=== PATIENT | female | born 1975 | race Caucasian/White ===

== ENCOUNTER 2018-09-30 09:38 | Emergency (ER) | payer BC ==
[2018-09-30 09:49] VITALS: BP 122/69
--- NOTE | 2018-09-30 11:15 | UC ---
Complaint Female HPI - HPI Summary HPI Summary: hematuria x 12 hours, 2 episodes with mild lower back pain, suprapubic pain, more right sided. no fever, chills. Pain worse after urination, better at rest. H/O back pain, b/l leg pain undergoing work up for swelling, chronic pain. - History Of Current Complaint Chief Complaint: UCGU Stated Complaint: URINE COLLECTION Time Seen by Provider: 09/30/18 10:41 Hx Obtained From: Patient Hx Last Menstrual Period: hyster ?: No - hysterectmy Onset/Duration: Sudden Onset, Lasting Days Timing: Constant Severity Initially: Moderate Severity Currently: Severe Pain Intensity: 7 - Allergies/Home Medications Allergies/Adverse Reactions: Allergies Allergy/AdvReac Type Severity Reaction Status Date / Time aspirin Allergy Nausea And Verified 09/30/18 09:55 Vomiting citalopram [From Celexa] Allergy Fatigue Verified 09/30/18 09:55 duloxetine [From Cymbalta] Allergy See Comment Verified 09/30/18 09:55 eszopiclone [From Lunesta] Allergy Dizziness Verified 09/30/18 09:55 meloxicam [From Mobic] Allergy Nausea Verified 09/30/18 09:55 meperidine [From Demerol] Allergy Rash Verified 09/30/18 09:55 prochlorperazine Allergy See Comment Verified 09/30/18 09:55 [From Compazine] Sulfa (Sulfonamide Allergy Rash Verified 09/30/18 09:55 Antibiotics) PMH/Surg Hx/FS Hx/Imm Hx Previously Healthy: Yes - h/o UTI > 7 months ago h/o Kidney stones - Surgical History Surgical History: Yes Surgery Procedure, Year, and Place: hysterectomy-per pt she has right ovary, right shoulder,kidney stone, abdominal explority, REMOVED DISC FROM RIGHT SIDE JAW, JAW SURGERY X3 - Social History Alcohol Use: None Substance Use Type: None Smoking Status (MU): Never Smoked Tobacco Review of Systems All Other Systems Reviewed And Are Negative: Yes Constitutional: Positive: Chills, Fatigue Genitourinary: Positive: Dysuria, Hematuria Is Patient Immunocompromised?: No Physical Exam Triage Information Reviewed: Yes Appearance: Well-Appearing, No Pain Distress, Well-Nourished Vital Signs: Initial Vital Signs Temp 98.1 F 09/30/18 09:43 Pulse 90 09/30/18 09:43 Resp 16 09/30/18 09:43 BP 122/69 09/30/18 09:43 Pulse Ox 100 09/30/18 09:43 Abdomen Description: Positive: No Organomegaly, Soft, Bruit, CVA Tenderness (R) , Other: - mild suprapubic tenderness. Negative: CVA Tenderness (L) Psychological Exam: Normal Complaint Female Dx - Course Course Of Treatment: UA + protein, blood. Treat for UTI, continue to follow up symptoms referral for urology given due to hematuria, D/C NSAIDs - Differential Dx/Diagnosis Differential Diagnosis/HQI/PQRI: Cervicitis, Ovarian Cyst, Ureteral Stone, Urinary Tract Infection Provider Diagnoses: UTI Discharge - Sign-Out/Discharge Documenting (check all that apply): Patient Departure All imaging exams completed and their final reports reviewed: No Studies - Discharge Plan Condition: Good Disposition: HOME Prescriptions: Cephalexin CAP* [Keflex CAP*] 500 mg PO TID #15 cap HYDROcodone/ACETAMIN 5-325 MG* [[place] 5-325 TAB*] 1 tab PO Q6H PRN #8 tab MDD 4 PRN Reason: Pain Phenazopyridine TAB* [Pyridium 100 mg TAB*] 100 mg PO TID #9 tab Patient Education Materials: Hydrocodone/Acetaminophen (By mouth), Hematuria ( ED) Referrals: Luís Chairez DO [Primary Care Provider] - Loyd Reid MD [Medical Doctor] - Additional Instructions: - Increase fluid intake - Urine sent for cultures, should return in 1-2 days - Antibiotic as prescribed - GO to ER with fever, chills, worsening pain, or increased blood in urine - If no improvement with urine symptoms in 2-3 days, follow up with primary care or urologist for further work up - Use tylenol for mild pain, norco for more severe pain - small doses - Billing Disposition and Condition Condition: GOOD Disposition: Home
== END 2018-09-30 11:32 | disposition home or self-care (01) ==
LOC: UCEAST 09:38
DX: N39.0 Urinary tract infection, site not specified (principal); Z88.6 Allergy status to analgesic agent; Z88.1 Allergy status to other antibiotic agents; Z88.8 Allergy status to other drugs, medicaments and biological substances; Z88.2 Allergy status to sulfonamides
CPT/HCPCS: 81003; 84702; 87086; 99212; G0463